=== PATIENT | female | born 1945 ===

== ENCOUNTER 2017-11-20 06:27 | Outpatient (CLI) | payer OTHER | END 2017-11-20 06:37 | disposition home or self-care (01) | LOC: LAB 06:27 | DX: B20 Human immunodeficiency virus [HIV] disease (principal); N18.2 Chronic kidney disease, stage 2 (mild); E11.9 Type 2 diabetes mellitus without complications; I10 Essential (primary) hypertension; N39.0 Urinary tract infection, site not specified; R82.79 Other abnormal findings on microbiological examination of urine ==

== ENCOUNTER 2017-12-25 08:15 | Outpatient (CLI) | payer OTHER | END 2017-12-25 08:16 | disposition home or self-care (01) | LOC: LAB 08:15 | DX: B20 Human immunodeficiency virus [HIV] disease (principal); E11.9 Type 2 diabetes mellitus without complications; E78.5 Hyperlipidemia, unspecified; I10 Essential (primary) hypertension; G90.09 Other idiopathic peripheral autonomic neuropathy ==

== ENCOUNTER 2018-03-12 06:09 | Outpatient (CLI) | payer OTHER | END 2018-03-12 06:45 | disposition home or self-care (01) | LOC: LAB 06:09 | DX: D68.8 Other specified coagulation defects (principal); I10 Essential (primary) hypertension; N39.0 Urinary tract infection, site not specified; E11.9 Type 2 diabetes mellitus without complications ==

== ENCOUNTER 2018-03-25 06:11 | Outpatient (CLI) | payer OTHER | END 2018-03-25 06:23 | disposition home or self-care (01) | LOC: LAB 06:11 | DX: D68.8 Other specified coagulation defects (principal); I10 Essential (primary) hypertension; N39.0 Urinary tract infection, site not specified; E11.9 Type 2 diabetes mellitus without complications ==

== ENCOUNTER → 2018-04-02 | Outpatient (CLI) | payer OTHER | END | disposition home or self-care (01) | LOC: LAB 06:28 | DX: N39.0 Urinary tract infection, site not specified (principal) ==

== ENCOUNTER 2018-04-09 06:08 | Outpatient (CLI) | payer OTHER | END 2018-04-09 06:50 | disposition home or self-care (01) | LOC: LAB 06:08 | DX: B20 Human immunodeficiency virus [HIV] disease (principal); E11.9 Type 2 diabetes mellitus without complications; I10 Essential (primary) hypertension; N18.3 Chronic kidney disease, stage 3 (moderate); E78.4 Other hyperlipidemia; N39.0 Urinary tract infection, site not specified; R82.79 Other abnormal findings on microbiological examination of urine ==

== ENCOUNTER 2018-05-08 12:26 | Emergency (ER) | payer OTHER ==
[~2018-05-08] VITALS: Ht 157.5 cm; Wt 54.4 kg
[2018-05-08] MEDS ORDERED: AVAPRO150 MG (12:58)
[2018-05-08] MEDS ORDERED: JULUCA 50-25 M1 EACH (12:59)
[2018-05-08] MEDS ORDERED: METFORMIN HCL500 MG (12:59)
[2018-05-08] MEDS ORDERED: NEURONTIN300 MG (13:00)
[2018-05-08] MEDS ORDERED: CENTRUM COMPLE1 EACH (13:00)
== END 2018-05-08 13:36 | disposition home or self-care (01) ==
LOC: ER 12:26
DX: R51 Headache (principal); M79.601 Pain in right arm

== ENCOUNTER 2018-11-12 06:28 | Outpatient (CLI) | payer OTHER ==
[~2018-11-12 06:28] MED LIST: AVAPRO150 MG; CENTRUM COMPLE1 EACH; JULUCA 50-25 M1 EACH; METFORMIN HCL500 MG; NEURONTIN300 MG
== END 2018-11-12 06:33 | disposition home or self-care (01) ==
LOC: LAB 06:28
DX: D68.8 Other specified coagulation defects (principal); I10 Essential (primary) hypertension; N39.0 Urinary tract infection, site not specified; Z01.810 Encounter for preprocedural cardiovascular examination

== ENCOUNTER 2018-12-22 06:47 | Outpatient (CLI) | payer OTHER | END 2018-12-22 06:51 | disposition home or self-care (01) | LOC: LAB 06:47 | DX: B20 Human immunodeficiency virus [HIV] disease (principal); I10 Essential (primary) hypertension; E11.9 Type 2 diabetes mellitus without complications; N39.8 Other specified disorders of urinary system; E55.9 Vitamin D deficiency, unspecified; Z11.4 Encounter for screening for human immunodeficiency virus [HIV] ==

== ENCOUNTER 2019-01-27 06:21 | Outpatient (CLI) | payer OTHER | END 2019-01-27 06:30 | disposition home or self-care (01) | LOC: LAB 06:21 | DX: B20 Human immunodeficiency virus [HIV] disease (principal); I10 Essential (primary) hypertension; E11.9 Type 2 diabetes mellitus without complications; N39.8 Other specified disorders of urinary system; E55.9 Vitamin D deficiency, unspecified; Z11.4 Encounter for screening for human immunodeficiency virus [HIV] ==

== ENCOUNTER 2019-04-05 06:19 | Outpatient (CLI) | payer OTHER | END 2019-04-05 06:28 | disposition home or self-care (01) | LOC: LAB 06:19 | DX: I10 Essential (primary) hypertension (principal); B20 Human immunodeficiency virus [HIV] disease; Z11.4 Encounter for screening for human immunodeficiency virus [HIV]; N18.3 Chronic kidney disease, stage 3 (moderate); E11.9 Type 2 diabetes mellitus without complications; B78.0 Intestinal strongyloidiasis; N39.0 Urinary tract infection, site not specified ==

== ENCOUNTER 2019-07-19 08:57 | Outpatient (CLI) | payer OTHER | END 2019-07-19 09:10 | disposition home or self-care (01) | LOC: NUCLEAR 08:57 | DX: M81.0 Age-related osteoporosis without current pathological fracture (principal) ==

== ENCOUNTER 2019-07-20 10:16 | Outpatient (CLI) | payer OTHER | END 2019-07-20 10:21 | disposition home or self-care (01) | LOC: MAMO-SONO 10:16 | DX: Z12.31 Encounter for screening mammogram for malignant neoplasm of breast (principal); Z87.898 Personal history of other specified conditions; N64.89 Other specified disorders of breast ==

== ENCOUNTER 2019-12-17 07:42 | Outpatient (CLI) | payer OTHER | END 2019-12-17 07:45 | disposition home or self-care (01) | LOC: SONOGRAMA 07:42 → MAMO-SONO 09:15 | DX: R10.84 Generalized abdominal pain (principal) ==

== ENCOUNTER 2020-11-07 06:15 | Outpatient (CLI) | payer OTHER | END 2020-11-07 06:20 | disposition home or self-care (01) | LOC: LAB 06:15 | PROVIDERS: ATTEND General Practice | DX: E11.9 Type 2 diabetes mellitus without complications (principal); B20 Human immunodeficiency virus [HIV] disease; E78.49 Other hyperlipidemia; I10 Essential (primary) hypertension; Z11.4 Encounter for screening for human immunodeficiency virus [HIV] ==